=== PATIENT | male | born 1955 | race Caucasian/White ===

== ENCOUNTER 2018-02-13 09:54 | Observation (INO) | payer OTHER ==
[2018-02-13] MEDS: DIAZEPAM 5 MG TAB PO (07:00)
[~2018-02-13 09:54] MED LIST: [UNRECOGNIZED DRUG - REMARK] XX
[2018-02-13 11:04] LABS: ADD MAN DIFF? NO
[2018-02-13 11:08] LABS: BASOPHILS % 0.9 % (0.0-2.0); EOSINOPHILS # 0.1 10^3/ul (0.0-0.5); EOSINOPHILS % 2.4 % (0.0-7.0); HEMATOCRIT 38.5 % (42.0-52.0); HEMOGLOBIN 12.8 g/dl (14.0-18.0); LYMPHOCYTES % 21.6 % (15.0-51.0); MEAN CORPUSCULAR HEMOGLOBIN 31.9 pg (29.0-33.0); MEAN CORPUSCULAR HGB CONC 33.2 g/dl (32.0-37.0); MEAN PLATELET VOLUME 11.9 fl (7.4-10.4); MONOCYTE # 0.5 10^3/ul (0.3-0.9); NEUTROPHILS % 64.9 % (39.0-77.0); PLATELET COUNT 159 10^3/UL (140-415); RED BLOOD COUNT 4.01 10^6/ul (4.70-6.10); RED CELL DISTRIBUTION WIDTH 14.3 % (11.5-14.5)
[2018-02-13 11:08] LABS: WHITE BLOOD COUNT 4.6 10^3/ul (4.8-10.8)
[2018-02-13] MEDS ORDERED: POLYMYXIN/BACITRACIN 1L IRRIG ×2 (11:28→11:29)
[2018-02-13 11:33] LABS: INR 1.02; PROTIME 13.5 Sec (11.9-14.9); PT RATIO 1.1
[2018-02-13] MEDS ORDERED: LIDOCAINE 1%/EPI 30 ML INJ ×2 (11:34→12:21)
[2018-02-13 11:41] LABS: ANION GAP 14 (8-16); BLOOD UREA NITROGEN 21 mg/dl (7-20); CARBON DIOXIDE 24 mmol/L (21-31); CHLORIDE 110 mmol/L (97-110); CHOL/HDL RATIO 2.1 RATIO; CHOLESTEROL 145 mg/dl (100-200); CREATININE 0.82 mg/dl (0.61-1.24); GLUCOSE 105 mg/dl (70-220); HDL CHOLESTEROL 66 mg/dl (30-78); LDL CHOLESTEROL,CALCULATED 69 mg/dl; POTASSIUM 4.2 mmol/L (3.5-5.1); SODIUM 144 mmol/L (135-144); TRIGLYCERIDES 52 mg/dl (0-149)
[2018-02-13] MEDS: VANCOMYCIN 1 GM 250 ML IVPB (12:00)
[2018-02-13] MEDS ORDERED: FENTAnyl 50 MCG/ML VIAL (12:10)
[2018-02-13] MEDS ORDERED: MIDAZOLAM 1 MG/ML 2 ML INJ (12:10)
[2018-02-13] MEDS ORDERED: ETOMIDATE 20 MG INJ ×2 (12:10→12:14)
[2018-02-13 12:16] LABS: PARTIAL THROMBOPLASTIN TIME 30.1 Sec (25.0-35.0)
[2018-02-13] MEDS ORDERED: IPRATROPIUM (NEB) 0.5 MG/2.5 ML AMP HHN (13:30)
[2018-02-13] MEDS ORDERED: HYDROmorphONE 1 MG/5 ML IV SYRINGE IV ×2 (13:30)
[2018-02-13] MEDS ORDERED: ONDANSETRON 4 MG INJ IV ×2 (13:30→15:00)
[2018-02-13] MEDS ORDERED: VANCOMYCIN IV PER PHARMACY XX (13:30)
[2018-02-13] MEDS ORDERED: METOCLOPRAMIDE 10 MG INJ IV (13:30)
[2018-02-13] MEDS ORDERED: DIPHENHYDRAMINE 50 MG INJ IV (13:30)
[2018-02-13] MEDS ORDERED: FENTAnyl 50 MCG/ML VIAL IV (13:30)
[2018-02-13] MEDS ORDERED: NACL 0.9% 3 ML SYG IV (15:00)
[2018-02-13] MEDS ORDERED: MAGNESIUM HYDROXIDE 30ML CUP PO (15:00)
[2018-02-13] MEDS ORDERED: DOCUSATE SODIUM 100 MG CAP PO (15:00)
[2018-02-13] MEDS ORDERED: HYDROCODONE/APAP (5/325) TAB PO (15:00)
[2018-02-13] MEDS ORDERED: IODIXANOL LOCM 50 ML BTL (16:59)
[2018-02-14] MEDS: VANCOMYCIN 750 MG in SOD CHLORIDE 0.9% 150 ML IVPB ×3 (01:43→21:23)
[2018-02-14] MEDS: ACETAMINOPHEN 325 MG TAB PO ×2 (01:49→14:26)
[2018-02-14] MEDS: PANTOPRAZOLE (EC) 40 MG TAB PO (05:54)
[2018-02-14] MEDS: POLYMYXIN/BACITRACIN 1L IRRIG IRR (07:35)
[2018-02-14] MEDS: SOD CHLORIDE 0.45% 1,000 ML IV (07:35)
[2018-02-14 08:44] LABS: ADD MAN DIFF? NO
[2018-02-14 09:01] LABS: WHITE BLOOD COUNT 5.6 10^3/ul (4.8-10.8)
[2018-02-14 09:01] LABS: BASOPHILS % 0.7 % (0.0-2.0); EOSINOPHILS # 0.1 10^3/ul (0.0-0.5); EOSINOPHILS % 2.5 % (0.0-7.0); HEMATOCRIT 39.3 % (42.0-52.0); LYMPHOCYTES # 1.1 10^3/ul (0.8-2.9); MEAN CORPUSCULAR HEMOGLOBIN 31.6 pg (29.0-33.0); MEAN CORPUSCULAR HGB CONC 33.1 g/dl (32.0-37.0); MEAN CORPUSCULAR VOLUME 95.6 fl (82.0-101.0); MONOCYTE # 0.6 10^3/ul (0.3-0.9); MONOCYTES % 9.9 % (0.0-11.0); NEUTROPHIL # 3.8 10^3/ul (1.6-7.5); NEUTROPHILS % 67.7 % (39.0-77.0); PLATELET COUNT 131 10^3/UL (140-415); RED BLOOD COUNT 4.11 10^6/ul (4.70-6.10); RED CELL DISTRIBUTION WIDTH 14.2 % (11.5-14.5)
[2018-02-14 09:10] LABS: ANION GAP 13 (8-16); BLOOD UREA NITROGEN 19 mg/dl (7-20); CALCIUM 8.4 mg/dl (8.4-10.2); CARBON DIOXIDE 24 mmol/L (21-31); CHLORIDE 107 mmol/L (97-110); CREATININE 0.74 mg/dl (0.61-1.24); GLUCOSE 97 mg/dl (70-220); POTASSIUM 4.2 mmol/L (3.5-5.1); SODIUM 140 mmol/L (135-144)
[2018-02-15] MEDS: PANTOPRAZOLE (EC) 40 MG TAB PO (06:37)
[2018-02-15] MEDS: ACETAMINOPHEN 325 MG TAB PO (06:37)
[2018-02-15] MEDS: SOD CHLORIDE 0.45% 1,000 ML IV (07:29)
== END 2018-02-15 18:13 | disposition home or self-care (01) ==
LOC: SDS 09:54 → REC 13:47 → MS4 20:10
DX: I25.5 Ischemic cardiomyopathy (principal); I10 Essential (primary) hypertension; E11.9 Type 2 diabetes mellitus without complications; I48.91 Unspecified atrial fibrillation; Z87.891 Personal history of nicotine dependence
CPT/HCPCS: 33249; 71045; 80048; 80061; 85025; 85610; 85730; 93005; G0378